=== PATIENT | female | born 1985 | race Caucasian/White ===

== ENCOUNTER 2019-03-23 05:03 | Inpatient (IN) ==
[2019-03-23 05:51] LABS: Pregnancy Test, Urine Negative (Negative)
[2019-03-23 05:59] LABS: Basophils # (auto) 0.09 K/uL (0-0.2); Basophils % (auto) 1.4 %; Eosinophils # (auto) 0.34 K/uL (0-0.5); Eosinophils % (auto) 5.3 %; Hemoglobin 14.1 g/dL (12.0-16.0); Immature Granulocytes # (auto) 0.01 K/uL (0.00-0.02); Immature Granulocytes % (auto) 0.2 %; Lymphocytes # (auto) 2.93 K/uL (1.2-3.4); Lymphocytes % (auto) 45.5 %; Mean Corpuscular Hgb Conc 34.4 g/dL (32-36); Mean Corpuscular Volume 87.6 fL (80-100); Mean Platelet Volume 10.8 fL (7.4-10.4); Monocytes # (auto) 0.42 K/uL (0.11-0.59); Monocytes % (auto) 6.5 %; Neutrophils # (auto) 2.65 K/uL (1.4-6.5); Neutrophils % (auto) 41.1 %; Platelet Count 254 K/uL (130-400); RDW Coefficient of Variation 13.1 % (11.5-14.5); Red Blood Count 4.68 M/uL (4.2-5.4); White Blood Count 6.44 K/uL (4.8-10.8)
[2019-03-23 06:01] LABS: Appearance Urine Clear (Clear); Bilirubin Urine Negative (Negative); Blood Urine Negative (Negative); Color Urine Yellow; Glucose Urine UA Negative (Negative); Ketones Urine Negative (Negative); Leukocyte Esterase Urine Negative (Negative); Nitrite Urine Negative (Negative); Protein Urine Negative (Negative); Specific Gravity Urine 1.011 (1.000-1.030); Urobilinogen Urine Negative (Negative)
[2019-03-23 06:09] LABS: Amphetamines+Metham, Urine Neg (Neg); Barbiturates, Urine Neg (Neg); Benzodiazepine, Urine Neg (Neg); Cocaine, Urine Neg (Neg); MDMA (Ecstacy), Urine Neg (Neg); Methadone, Urine Neg (Neg); Opiate, Urine Neg (Neg); Phencyclidine, Urine Neg (Neg)
[2019-03-23 06:15] LABS: BUN Creatinine Ratio 7.5 (10-20); Calcium 8.8 mg/dl (8.5-10.1); Creatinine Clr Calc Pharmacy 113.3 ml/min; Est GFR (African American) 132.9; Est GFR (Non-African American) 114.6; Potassium 3.8 mmol/L (3.5-5.1)
[2019-03-23 06:26] LABS: Bilirubin,Total 0.3 mg/dl (0.2-1); Globulin 3.9 gm/dl (2.5-4.0); Total Protein 7.9 gm/dl (6.4-8.2)
[2019-03-23 06:31] LABS: Acetaminophen < 2 ug/ml (10-30)
[2019-03-23 06:32] LABS: Salicylate < 1.7 mg/dl (2.8-20)
--- NOTE | 2019-03-23 06:57 | Emergency Department Note ---
Entered by Oleg Hannon acting as a scribe for ED Provider Note Name: Tri Osuna Age: 34, female Arrives Via: EMS Informant: Patient CC: Suicidal ideations HPI: The patient is a 34 year old female who presents to the emergency department with complaints of an episode of suicidal ideations occurring today. The patient states that she has a history of anxiety and depression. She notes that her dad has had cancer for a few months, and she reports that this has caused her depression to be worse. The patient states that she was drinking alco hol tonight which caused her to have increased thoughts of suicide. She notes that she did not try to hurt herself today, but she reports that she did have a plan to hang herself. The patient states that she called the suicide hotline because she knew that her suicidal ideations �would eventually subside.� She denies any abdominal pain, leg swelling, headache, and recent fall. She notes that she smokes cigarettes but does not use drugs. She reports that she has a history of emphysema and asthma. The patient states that there is no chance that she is . She notes that she has a family history of cancer and hypertension. ROS: See above HPI for pertinent positives & negatives. A total of 10 systems reviewed and were otherwise negative. Past Medical History: Depression, anxiety, emphysema, asthma Past Surgical History: None Family History: Cancer, hypertension Social History: Smokes cigarettes, drinks alcohol, does not use drugs, employed Home Medications: Please see medication list Allergies: None Physical: Vitals: BP 111/71, Pulse 71, Resp 16, Temp 97.5 F L, O2 Sat 98 Exam: GENERAL: Patient is heavily intoxicated appearing and in no acute distress, smells of alcohol, slurred speech. EYES: No scleral icterus, unremarkable pupils. ENT: Mucous membranes moist, no nasal congestion. NECK: No masses appreciated, no meningismus, trachea is midline. RESPIRATORY: No dyspnea. Clear to auscultation and equal bilaterally. No wheeze, no rhonchi. CARDIOVASCULAR: Regular rate and rhythm. No murmurs, rubs, gallops appreciated. GASTROINTESTINAL: Abdomen soft, non-tender, no peritonitis. Bowel sounds positive. No masses appreciated. BACK: No midline tenderness, no CVA tenderness EXTREMITIES: Normal motion all extremities, no cyanosis, no edema. Eczema to the bilateral elbows. NEUROLOGIC: Alert and oriented, no acute motor or sensory deficits, no focal weakness, cranial nerves grossly intact. SKIN: No rash, no jaundice, no diaphoresis. PSYCH: Admits depression, admits anxiety, admits suicidal ideation with plan. ED Course: Prior Medical Record, Triage/Nursing Notes, Medications, Allergies reviewed by Me 0512: The patient was evaluated in room A7. A complete history and physical exam was performed. 0622: I reevaluated the patient. She is sleeping. 0730: The patient was signed out to Dr. Tyler at the change of shift. Vital Signs: reviewed and remarkable for wnl Labs: Reviewed and remarkable for +etoh Interventions: None Blood pressure: Normal. No Referral necessary Disposition: Signed out to Dr Tyler Differentials: Differential diagnosis includes: psychiatric disorder, infection, hypoglycemia, electrolyte abnormalities, cardiac sources, intracerebral event, toxicological process, neurologic disorder, as well as others were entertained. Medical Decision Makin yr old female arrives for acute suicidal ideation in setting of alcohol intoxication. She is medically clear other than intoxicated. Denies any attempt at harm and there is no evidence by exam nor labs of suicide attempt. She was signed out to Dr Tyler pending sobering and mental health evaluation. Impression: Alcohol intoxication, suicidal ideation Doug Johnson MD The scribe's documentation has been prepared under my direction and personally reviewed by me in its entirety. I confirm that the note above accurately reflects all work, treatment, procedures, and medical decision making performed by me. Impression & Plan Alcohol intoxication, Suicidal ideation Past Med/Surg History Medical History Anxiety Asthma Depression Emphysema/COPD Family History Other Cancer Hypertension Social History Communication Ability: Effective current occupational status: employed Feels Safe at Home: Yes Smoking Status: Current every day smoker Hx Alcohol Use: Yes Hx Substance Use: No Results & Data Vital Signs Vital Signs - 24 hr 03/23/19 05:13 03/23/19 06:30 Temperature 36.4 C L Temperature Source Oral Sepsis Recent Fever Within 48 Hours No Sepsis New/Unexplained Change in Mental Status No Sepsis Action Taken by Nursing No Action Required Pulse Rate 71 Pulse Rate [Right Finger] 70 Respiratory Rate 16 16 Respiratory Effort / Characteristics Non-Labored Non-Labored Respiratory Depth Normal Normal Respiratory Pattern Regular Regular Blood Pressure 111/71 Blood Pressure [Right Arm] 96/42 L Blood Pressure Mean 84 Blood Pressure Mean [Right Arm] 60 Blood Pressure Position Lying Blood Pressure Position [Right Arm] Lying Pulse Oximetry 98 98 Oxygen Delivery Method Room Air Room Air Home Medications Current Medication List: was personally reviewed by me Laboratory Data Attestation: I reviewed the patient's lab results. Result diagrams: 03/23/19 05:41 03/23/19 05:41 Lab Results 03/23/19 03/23/19 03/23/19 Range/Units 05:11 05:11 05:11 WBC (4.8-10.8) K/uL RBC (4.2-5.4) M/uL Hgb (12.0-16.0) g/dL Hct (37-47) % MCV (80-100) fL MCH (25-34) pg MCHC (32-36) g/dL RDW Std Deviation (36.4-46.3) fL RDW Coeff of Adis (11.5-14.5) % Plt Count (130-400) K/uL MPV (7.4-10.4) fL Immature Gran % (Auto) % Neut % (Auto) % Lymph % (Auto) % [place] % (Auto) % Eos % (Auto) % Baso % (Auto) % Immature Gran # (Auto) (0.00-0.02) K/uL Neut # (Auto) (1.4-6.5) K/uL Lymph # (Auto) (1.2-3.4) K/uL [place] # (Auto) (0.11-0.59) K/uL Eos # (Auto) (0-0.5) K/uL Baso # (Auto) (0-0.2) K/uL Sodium (136-145) mmol/L Potassium (3.5-5.1) mmol/L Chloride (98-107) mmol/L Carbon Dioxide (21-32) mmol/L Anion Gap (3-11) BUN (7-18) mg/dl Creatinine (0.6-1.2) mg/dl Est Cr Clr Drug Dosing ml/min Est GFR ( Amer) Est GFR (Non-Af Amer) BUN/Creatinine Ratio (10-20) Glucose (70-99) mg/dl Calcium (8.5-10.1) mg/dl Total Bilirubin (0.2-1) mg/dl AST (15-37) U/L ALT (12-78) U/L Alkaline Phosphatase (45-117) U/L Total Protein (6.4-8.2) gm/dl Albumin (3.4-5.0) gm/dl Globulin (2.5-4.0) gm/dl Albumin/Globulin Ratio (0.9-2) TSH (0.300-4.500) uIu/ml Urine Color Yellow Urine Appearance Clear (Clear) Urine pH 5.0 (4.5-7.5) Ur Specific [place] 1.011 (1.000-1.030) Urine Protein Negative (Negative) Urine Glucose (UA) Negative (Negative) Urine Ketones Negative (Negative) Urine Blood Negative (Negative) Urine Nitrite Negative (Negative) Urine Bilirubin Negative (Negative) Urine Urobilinogen Negative (Negative) Ur Leukocyte Esterase Negative (Negative) Urine Test Negative (Negative) Salicylates (2.8-20) mg/dl Urine Opiates Screen Neg (Neg) Ur Methadone, Qual Neg (Neg) Acetaminophen (10-30) ug/ml Urine Barbiturates Neg (Neg) Ur Phencyclidine (PCP) Neg (Neg) U Amphetamin/Meth Scrn Neg (Neg) MDMA (Ecstasy) Screen Neg (Neg) U Benzodiazepines Scrn Neg (Neg) Ur Cocaine Metabolite Neg (Neg) U Marijuana (THC) Screen Pos H (Neg) Ethyl Alcohol mg/dL (0-3) mg/dl 03/23/19 03/23/19 03/23/19 Range/Units 05:41 05:41 05:41 WBC 6.44 (4.8-10.8) K/uL RBC 4.68 (4.2-5.4) M/uL Hgb 14.1 (12.0-16.0) g/dL Hct 41.0 (37-47) % MCV 87.6 (80-100) fL MCH 30.1 (25-34) pg MCHC 34.4 (32-36) g/dL RDW Std Deviation 42.0 (36.4-46.3) fL RDW Coeff of Adis 13.1 (11.5-14.5) % Plt Count 254 (130-400) K/uL MPV 10.8 H (7.4-10.4) fL Immature Gran % (Auto) 0.2 % Neut % (Auto) 41.1 % Lymph % (Auto) 45.5 % [place] % (Auto) 6.5 % Eos % (Auto) 5.3 % Baso % (Auto) 1.4 % Immature Gran # (Auto) 0.01 (0.00-0.02) K/uL Neut # (Auto) 2.65 (1.4-6.5) K/uL Lymph # (Auto) 2.93 (1.2-3.4) K/uL [place] # (Auto) 0.42 (0.11-0.59) K/uL Eos # (Auto) 0.34 (0-0.5) K/uL Baso # (Auto) 0.09 (0-0.2) K/uL Sodium 143 (136-145) mmol/L Potassium 3.8 (3.5-5.1) mmol/L Chloride 112 H (98-107) mmol/L Carbon Dioxide 26 (21-32) mmol/L Anion Gap 5.0 (3-11) BUN 5 L (7-18) mg/dl Creatinine 0.70 (0.6-1.2) mg/dl Est Cr Clr Drug Dosing 113.3 ml/min Est GFR ( Amer) 132.9 Est GFR (Non-Af Amer) 114.6 BUN/Creatinine Ratio 7.5 L (10-20) Glucose 96 (70-99) mg/dl Calcium 8.8 (8.5-10.1) mg/dl Total Bilirubin 0.3 (0.2-1) mg/dl AST 18 (15-37) U/L ALT 29 (12-78) U/L Alkaline Phosphatase 51 (45-117) U/L Total Protein 7.9 (6.4-8.2) gm/dl Albumin 4.0 (3.4-5.0) gm/dl Globulin 3.9 (2.5-4.0) gm/dl Albumin/Globulin Ratio 1.0 (0.9-2) TSH 2.880 (0.300-4.500) uIu/ml Urine Color Urine Appearance (Clear) Urine pH (4.5-7.5) Ur Specific [place] (1.000-1.030) Urine Protein (Negative) Urine Glucose (UA) (Negative) Urine Ketones (Negative) Urine Blood (Negative) Urine Nitrite (Negative) Urine Bilirubin (Negative) Urine Urobilinogen (Negative) Ur Leukocyte Esterase (Negative) Urine Test (Negative) Salicylates < 1.7 L (2.8-20) mg/dl Urine Opiates Screen (Neg) Ur Methadone, Qual (Neg) Acetaminophen < 2 L (10-30) ug/ml Urine Barbiturates (Neg) Ur Phencyclidine (PCP) (Neg) U Amphetamin/Meth Scrn (Neg) MDMA (Ecstasy) Screen (Neg) U Benzodiazepines Scrn (Neg) Ur Cocaine Metabolite (Neg) U Marijuana (THC) Screen (Neg) Ethyl Alcohol mg/dL (0-3) mg/dl 03/23/19 Range/Units 05:41 WBC (4.8-10.8) K/uL RBC (4.2-5.4) M/uL Hgb (12.0-16.0) g/dL Hct (37-47) % MCV (80-100) fL MCH (25-34) pg MCHC (32-36) g/dL RDW Std Deviation (36.4-46.3) fL RDW Coeff of Adis (11.5-14.5) % Plt Count (130-400) K/uL MPV (7.4-10.4) fL Immature Gran % (Auto) % Neut % (Auto) % Lymph % (Auto) % [place] % (Auto) % Eos % (Auto) % Baso % (Auto) % Immature Gran # (Auto) (0.00-0.02) K/uL Neut # (Auto) (1.4-6.5) K/uL Lymph # (Auto) (1.2-3.4) K/uL [place] # (Auto) (0.11-0.59) K/uL Eos # (Auto) (0-0.5) K/uL Baso # (Auto) (0-0.2) K/uL Sodium (136-145) mmol/L Potassium (3.5-5.1) mmol/L Chloride (98-107) mmol/L Carbon Dioxide (21-32) mmol/L Anion Gap (3-11) BUN (7-18) mg/dl Creatinine (0.6-1.2) mg/dl Est Cr Clr Drug Dosing ml/min Est GFR ( Amer) Est GFR (Non-Af Amer) BUN/Creatinine Ratio (10-20) Glucose (70-99) mg/dl Calcium (8.5-10.1) mg/dl Total Bilirubin (0.2-1) mg/dl AST (15-37) U/L ALT (12-78) U/L Alkaline Phosphatase (45-117) U/L Total Protein (6.4-8.2) gm/dl Albumin (3.4-5.0) gm/dl Globulin (2.5-4.0) gm/dl Albumin/Globulin Ratio (0.9-2) TSH (0.300-4.500) uIu/ml Urine Color Urine Appearance (Clear) Urine pH (4.5-7.5) Ur Specific [place] (1.000-1.030) Urine Protein (Negative) Urine Glucose (UA) (Negative) Urine Ketones (Negative) Urine Blood (Negative) Urine Nitrite (Negative) Urine Bilirubin (Negative) Urine Urobilinogen (Negative) Ur Leukocyte Esterase (Negative) Urine Test (Negative) Salicylates (2.8-20) mg/dl Urine Opiates Screen (Neg) Ur Methadone, Qual (Neg) Acetaminophen (10-30) ug/ml Urine Barbiturates (Neg) Ur Phencyclidine (PCP) (Neg) U Amphetamin/Meth Scrn (Neg) MDMA (Ecstasy) Screen (Neg) U Benzodiazepines Scrn (Neg) Ur Cocaine Metabolite (Neg) U Marijuana (THC) Screen (Neg) Ethyl Alcohol mg/dL 218.0 H (0-3) mg/dl Discharge Plan Visit Data Chief Complaint: Mental Health Evaluation Stated Complaint: MENTAL HEALTH/ALCOHOL OVERDOSE Other Complaint: Alcohol Intoxication ED Provider: Doug Johnson Discharge Problem: Alcohol intoxication, Suicidal ideation Patient Disposition: Still a Patient Forms Stand Alone Forms: My [facility] Going My Way Prescriptions Prescriptions: No Action Nitrofurantoin Monohyd Macrocr (Macrobid) 100 MG capsule 100 mg PO BID Qty: 14 RF: 0 Phenazopyridine HCl (Pyridium) 200 MG tablet 200 mg PO TID Qty: 10 RF: 0 Lorazepam (Ativan *) 0.5 MG tablet 0.5 mg PO PRN Qty: 0 RF: 0 NASONEX Qty: 0 RF: 0 PROZAC Qty: 0 RF: 0 ZYRTEC Qty: 0 RF: 0 Hydrocodone/Acetaminophen 5MG/500MG (Vicodin 5MG/500MG) tablet 1 - 2 tabs PO Q4-6HR PRN Qty: 20 RF: 0 Penicillin V Potassium (Veetids) 500 MG tablet 500 mg PO TID Qty: 21 RF: 0 Referrals Referrals: PCP,NO [Primary Care Provider] - Discharge Problem: Alcohol intoxication Qualifiers: Complication of substance-induced condition: uncomplicated Qualified Code(s): F10.920 - Alcohol use, unspecified with intoxication, uncomplicated The scribe's documentation has been prepared under my direction and personally reviewed by me in its entirety. I confirm that the note above accurately reflects all work, treatment, procedures, and medical decision making performed by me.
--- NOTE | 2019-03-23 07:25 | Emergency Department Note ---
ED Visit Note This patient was signed out to me by Dr. Johnson. She was placed in room A7. She has increasing depression and was drinking last night. She was going to harm herself. She was continuing to sober up and was medically cleared and was seen by her psychiatric supportive employment case manager. She did get Ativan for anxiety. She tells me she has felt very anxious and has had suicidal ideations lately. I do think she would benefit from inpatient treatment. She is willing to come in voluntarily and was admitted to 3 S. . : Alcohol intoxication Qualifiers: Complication of substance-induced condition: uncomplicated Qualified Code(s): F10.920 - Alcohol use, unspecified with intoxication, uncomplicated
[2019-03-23] MEDS ORDERED: LORazepam 0.5 MG TAB PO STA (11:16)
[2019-03-23] MEDS ORDERED: ACETAMINOPHEN 325 MG TAB ONE (13:17)
[2019-03-23] MEDS ORDERED: ONDANSETRON 4 MG TAB PO PRN (15:07)
[2019-03-23] MEDS ORDERED: LORazepam 0.5 MG TAB PO PRN (15:50)
[2019-03-23] MEDS ORDERED: SODIUM CHLORIDE 0.65% NA SOLN 45 ML (OCEAN) PRN (15:51)
[2019-03-23] MEDS ORDERED: MAGNESIUM HYDROXIDE SUSP 30 ML UDC PO PRN (15:51)
[2019-03-23] MEDS ORDERED: BISMUTH SUBSALICYLATE PER ML OMNICELL CHARGE PO PRN (15:51)
[2019-03-23] MEDS ORDERED: ALUMINUM/MAGNESIUM SUSP 30 ML UDC PO PRN (15:51)
[2019-03-23] MEDS ORDERED: ACETAMINOPHEN 325 MG TAB PO PRN (15:51)
--- NOTE | 2019-03-23 16:34 | History & Physical ---
Date of Service March 23, 2019 Impression / Recommendations Impression 34 yr old with extensive h/o Major depressive disorder concerns likely was in partial remission while in [place] on citalopram and lorazepam daily, with father's lymphoma dx likely aggravating presentation with her move out here and losing her structure and abrupt change of schedule and being in between job (just starting work locally) further aggravating presentation. Additionally pt taken only about 3 doses of citalopram in past month th this being a likely main aggravating factor as well. Pt also stopped her lorazepam 0.5mg 1 bid doses abruptly about a month ago. She has tendency to drink excessively about once a month, with Ativan being on board likely worsening this concern. Pt has SI frequently when things not going well but usually at passive level. H/o SIB as a adolescent with suicidal attempt at age 17 lead to psych admission. She was brought to ER by ambulance after she called crisis hotline about her SI. She is a 201 voluntarily admission for her depression and SI concerns. She is not wanting to try additional or replacement Meds nor adjust citalopram dosing but wants to resume her citalopram Pt wants to quit smoking but denied meds or nicotine replacement options at this time. Q15 minute safety checks for SI resume citalopram 0mg a day Vistaril prn for anxiety and insomnia Zofran prn for nausea/vomiting added encourage family meeting with father- pt considering encouraged referral for therapy aptps as aftercare, pt open to this encouraged psychiatrist for aftercare for psych med management, pt open to this encouraged local PCP since establishing job locally and likely to be residing locally for ablest some time, pt open to this reviewed idea of nicotine replacement therapy for cravings and to als help with goal of quitting, pt declined, pt not interested in other med options for quitting smoking as well reviewed her cannabis usage - pt views it positively without any motivation to pull of cannabis at this time monitor for potential h/o hypomanic episodes/symptoms reviewed with pt potential med adjustments including adjunctive Meds or alternative Meds or potential to adjust citalopram dose, however since worsening tied to very limited taking of her antidepressant agre with resuming it at prior rx dose for now lorazepam aiming to stop, will allow prn dosing at 0.5mg for now Inventory Assets Strengths: seeking help, starting a job locally, Needs: outpatient providers, resuming medication, outpatient therapy, addressing her use of alcohol. Risk Factors Assessment Male: No : Yes Do You Have Access To A Gun?: No Health Problems: No Mental Health Diagnoses: Yes Previous Attempt: Yes Previous Attempt; Highly Lethal: No Previous Attempt; Planned: No Previous Psychiatric Hospitalization: Yes Smoker: Yes Protective Factors Assessment Employed: No (Recently gave up her job to move to [place]) Psychiatric History Identifying Data LUCIA ROUSE is a 34-year-old F who currently lives with her father in [place], [place], has a history of depressive disorder , and was admitted on 03/23/19 13:19 on a 201 voluntary commitment for depression with suicidlity concerns. Chief Complaint "I have suicidal ideation". History of Present Illness Lucia is a 34 yr old female who has started residing in [place], [place] with her father as of a month ago due to her father's Non Hodgkin's T cell cancer dx (dx'd about 5-6 months ago). 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 Her father is making progress in his Non Hodgkin's Lymphoma although the cancer and its treatment does impact him significantly. She has lost her structure and her sense of her own life during the past month and she has pulled off her medications. She was taking citalopram 40mg 1 tab each morning till about a month ago and has only taken it 3 or so times in the past month , last time about 2 days ago and time prior about a week or so before that. She was taking ativan 0.5mg 1 po bid daily, with usage for many years, and ceased taking that since moving out her a month ago. She obtained one ativan dose in the ER though. She endorsed a tendency to more passive SI perhaps weekly when things go wrong, even in small ways. She felt citalopram was the best med that she has taken to date and she has been on it 5 years with it being raised to 40mg a day from 20mg a day somewhere in the past year or so. She had some time of taking bupropion with citalopram but a consultation with a psychiatrist lead for her bupropion to be stopped. She did not follow up with the psychiatrist due to financial concerns per pt. She saw a therapist for a limited number of appts back about 2 years ago. She has been using cannabis daily during the pat year and she attributes her usage of it as helping her grow as a person with being more responsible, grounded, and introspective. She smokes 3/4-1ppd and has once quit smoking for about 6 months, on own without nicotine replacement or medications to assist. She has a tendency to drink alcohol heavily about once a month, with tending to have black out from her drinking ,She feels cannot stop drinking once she starts and views that as her main concern about her alcohol usage. More remotely, years ago woudl drink heavily more frequently. She denied any other usage of other substances or misuse of rx'd or OTC Meds. She has one past suicide attempt at age 17 in which she took a small overdose of pills and when she took her doctor afterwards she ended up admitted at the [facility]. She has a remote h/o SIB by superficially cutting without suicidal intent at times from age [age] , denied SIB since then. She denied h/o OCD, psychotic features, or eating disorder. She endorsed some anxiety features and can at times have a panic attack. 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 She has started working at a [employer] and is expecting to start health insurance within the week. She denied episodes of hypomania but endorsed spurts of erratic behaviors that could last few hours with pt struggling to clarify if hypomanic verus just mood reactivity versus "just not being responsible" and erratic in behavior and labile in mood. Pt weary to add medication or change medication and prefers to resume citalopram at 40mg a day. She appeared not focused on Ativan. She endorsed that she sometimes views interpersonal concerns with a mild paranoid thought process, weary of people angry at her or judging her or being against her. Pt quite nauseated and severe headache during assessment left assessment to throw up and continued assessment shortly after that Past Psychiatric History Previous Psych History: as per HPI this is [facility], first at age 17 [facility] for her only other suicidal behavior past outpt treatment as above past med trials included zoloft, effexor xr, and perhaps prozac, and wellbutrin. remote past SIB as above Current Psychiatric Diagnosis: major depressive disorder Outpatient Services: PCP - [place] Previous Psych Admissions: [facility] age 17 for suicidal beahvior Do You Have Access To A Gun?: No History of Previous Suicide Attempt: Yes Describe Attempts in the Past: OD age 17 Past Head Trauma/Neuro History History of Concussion/Seizure: Yes no sz history one mild concussion symptoms resolved within couple days in her mid twenties Allergies Allergy/AdvReac Type Severity Reaction Status Date / Time peanut Allergy Anaphylaxis Verified 03/23/19 13:26 phenazopyridine Allergy Rash Verified 03/23/19 13:26 [From Pyridium] PEANUT OIL Allergy Unknown Unknown Uncoded 03/23/19 13:26 Home Medications Home Medications Medication Instructions Recorded Confirmed Type citalopram 40 mg PO DAILY 03/23/19 03/23/19 History isotretinoin 20 mg PO DAILY 03/23/19 03/23/19 History lorazepam 0.5 mg PO Q4H PRN 03/23/19 03/23/19 History Family History Family History of: Depression Family Mental Health History Comment: Dad Alcohol History Hx of Alcohol Use Over the Past 12 Months: Yes (once a month) AUDIT Total Score: 9 Smoking Use Have You Smoked or Used Tobacco Products in the Last 30 Days: Yes tobacco type: cigarettes Smoking Status: Current every day smoker Smoking packs per day: 1 Substance History Hx of Prescription Med Misuse Over the Past 12 Months: No Hx of Over the Counter Med Misuse Over the Past 12 Months: No Hx of Inhalent Misuse Over the Past 12 Months: No Hx of Organic Substance Use Over the Past 12 Months: No (marijuana for anxiety a couple of times a week) Hx of Illegal Substances/Street Drug Use Over Past 12 Months: No Problems as a Result of Past Substance Use: None Identified Personal History Living Arrangements: Home (with father ) 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) Beliefs That Will Affect Care: None Current Legal Problems: No Hx Legal Problems: No Hx Traumatic Life Events: Yes Psychological Trauma History Comment: father's health concerns, he had a stroke when pt was 20 years old, had B cell type Non Hodgkin's lymphoma about 5 years ago and about 6 months ago dx with T cell Non Hodgkin's Lymphoma Patient History Medical History Anxiety Asthma Depression Emphysema/COPD Family History Other Cancer Hypertension Social History Communication Ability: Effective Instrument Checker Required: No Beliefs That Will Affect Care: None current occupational status: employed Feels Safe at Home: Yes Smoking Status: Current every day smoker Tobacco Type: cigarettes Hx Alcohol Use: Yes Hx Substance Use: No Review of Systems Constitutional: + fatigue; no anorexia, no increased appetite and no insomnia Ear, Nose, Mouth, Throat: denied Respiratory: COPD concerns brought out by h/o asthma and smoking Cardiovascular: no chest pain, no palpitations and no edema Gastrointestinal: + nausea and + vomiting Musculoskeletal: no back pain and no joint pain Integumentary: + acne; no rash Neurologic: + headache(s) Psychiatric: as per Subjective / HPI Physical Exam Mental Examination: ER attending note reviewed and physial exam done in ER considered sufficient for this admission Psychiatric: Orientation: alert and oriented x 3 scrubs Eye Contact: + poor eye contact covering face,and looking away "have a headache Motor Behavior: steady gait and station and no abnormal motor movements Speech: normal rate/rhythm/volume of speech Affect: + depressed affect Mood: + depressed mood Thought Process: goal directed thought process, linear/logical thought process and clear/coherent thought process Thought Content: reality based without delusions Suicidal Thoughts: + reports suicidal thoughts and + reports suicidal plan plan to hang self with a sheet, mixed level of intent, realizing not what would truly want but intent was increasing to a concerning level per patient Homicidal Thoughts: denies homicidal thoughts Hallucinations: no auditory hallucinations and no visual hallucinations Cognition: recent memory grossly intact and remote memory grossly intact Estimated Intelligence: average estimated intelligence Insight: + fair insight Judgement: + impaired judgement Vital Signs (Past 24 Hours): Last Vital Signs Temp 36.6 C 03/23/19 15:18 Pulse 84 03/23/19 15:18 Resp 16 03/23/19 15:18 BP 114/72 03/23/19 15:18 Pulse Ox 95 03/23/19 11:09 Results & Data Laboratory Results Laboratory Results - last 24 hr 03/23/19 03/23/19 03/23/19 05:11 05:11 05:11 WBC RBC Hgb Hct MCV MCH MCHC RDW Std Deviation RDW Coeff of Adis Plt Count MPV Immature Gran % (Auto) Neut % (Auto) Lymph % (Auto) [place] % (Auto) Eos % (Auto) Baso % (Auto) Immature Gran # (Auto) Neut # (Auto) Lymph # (Auto) [place] # (Auto) Eos # (Auto) Baso # (Auto) Sodium Potassium Chloride Carbon Dioxide Anion Gap BUN Creatinine Est Cr Clr Drug Dosing Est GFR ( Amer) Est GFR (Non-Af Amer) BUN/Creatinine Ratio Glucose Calcium Total Bilirubin AST ALT Alkaline Phosphatase Total Protein Albumin Globulin Albumin/Globulin Ratio TSH Urine Color Yellow Urine Appearance Clear Urine pH 5.0 Ur Specific [place] 1.011 Urine Protein Negative Urine Glucose (UA) Negative Urine Ketones Negative Urine Blood Negative Urine Nitrite Negative Urine Bilirubin Negative Urine Urobilinogen Negative Ur Leukocyte Esterase Negative Urine Test Negative Salicylates Urine Opiates Screen Neg Ur Methadone, Qual Neg Acetaminophen Urine Barbiturates Neg Ur Phencyclidine (PCP) Neg U Amphetamin/Meth Scrn Neg MDMA (Ecstasy) Screen Neg U Benzodiazepines Scrn Neg Ur Cocaine Metabolite Neg U Marijuana (THC) Screen Pos H U Marijuana THC Carboxy Ethyl Alcohol mg/dL 03/23/19 03/23/19 03/23/19 05:11 05:41 05:41 WBC 6.44 RBC 4.68 Hgb 14.1 Hct 41.0 MCV 87.6 MCH 30.1 MCHC 34.4 RDW Std Deviation 42.0 RDW Coeff of Adis 13.1 Plt Count 254 MPV 10.8 H Immature Gran % (Auto) 0.2 Neut % (Auto) 41.1 Lymph % (Auto) 45.5 [place] % (Auto) 6.5 Eos % (Auto) 5.3 Baso % (Auto) 1.4 Immature Gran # (Auto) 0.01 Neut # (Auto) 2.65 Lymph # (Auto) 2.93 [place] # (Auto) 0.42 Eos # (Auto) 0.34 Baso # (Auto) 0.09 Sodium 143 Potassium 3.8 Chloride 112 H Carbon Dioxide 26 Anion Gap 5.0 BUN 5 L Creatinine 0.70 Est Cr Clr Drug Dosing 113.3 Est GFR ( Amer) 132.9 Est GFR (Non-Af Amer) 114.6 BUN/Creatinine Ratio 7.5 L Glucose 96 Calcium 8.8 Total Bilirubin 0.3 AST 18 ALT 29 Alkaline Phosphatase 51 Total Protein 7.9 Albumin 4.0 Globulin 3.9 Albumin/Globulin Ratio 1.0 TSH 2.880 Urine Color Urine Appearance Urine pH Ur Specific [place] Urine Protein Urine Glucose (UA) Urine Ketones Urine Blood Urine Nitrite Urine Bilirubin Urine Urobilinogen Ur Leukocyte Esterase Urine Test Salicylates Urine Opiates Screen Ur Methadone, Qual Acetaminophen Urine Barbiturates Ur Phencyclidine (PCP) U Amphetamin/Meth Scrn MDMA (Ecstasy) Screen U Benzodiazepines Scrn Ur Cocaine Metabolite U Marijuana (THC) Screen U Marijuana THC Carboxy Pending Ethyl Alcohol mg/dL 03/23/19 03/23/19 05:41 05:41 WBC RBC Hgb Hct MCV MCH MCHC RDW Std Deviation RDW Coeff of Adis Plt Count MPV Immature Gran % (Auto) Neut % (Auto) Lymph % (Auto) [place] % (Auto) Eos % (Auto) Baso % (Auto) Immature Gran # (Auto) Neut # (Auto) Lymph # (Auto) [place] # (Auto) Eos # (Auto) Baso # (Auto) Sodium Potassium Chloride Carbon Dioxide Anion Gap BUN Creatinine Est Cr Clr Drug Dosing Est GFR ( Amer) Est GFR (Non-Af Amer) BUN/Creatinine Ratio Glucose Calcium Total Bilirubin AST ALT Alkaline Phosphatase Total Protein Albumin Globulin Albumin/Globulin Ratio TSH Urine Color Urine Appearance Urine pH Ur Specific [place] Urine Protein Urine Glucose (UA) Urine Ketones Urine Blood Urine Nitrite Urine Bilirubin Urine Urobilinogen Ur Leukocyte Esterase Urine Test Salicylates < 1.7 L Urine Opiates Screen Ur Methadone, Qual Acetaminophen < 2 L Urine Barbiturates Ur Phencyclidine (PCP) U Amphetamin/Meth Scrn MDMA (Ecstasy) Screen U Benzodiazepines Scrn Ur Cocaine Metabolite U Marijuana (THC) Screen U Marijuana THC Carboxy Ethyl Alcohol mg/dL 218.0 H Current Inpatient Medications Current Inpatient Medications: Current Inpatient Medications Citalopram Hydrobromide (Celexa) 40 mg PO DAILY AURE Stop: 04/22/19 15:59 Lorazepam (Ativan) 0.5 mg PO Q4H PRN PRN Reason: Anxiety Stop: 04/22/19 15:49 Ondansetron HCl (Zofran Tab) 4 mg PO Q4H PRN PRN Reason: Nausea Stop: 04/22/19 15:06 CPT Code CPT Code Initial Hospital Care: 49955
[2019-03-23] MEDS: CITALOPRAM 40 MG TAB PO SCH (17:57)
[2019-03-24] MEDS: CITALOPRAM 40 MG TAB PO SCH (09:25)
[2019-03-24] MEDS ORDERED: KETOCONAZOLE 2% SHAMPOO 120 ML BTL EXT PRN (15:55)
--- NOTE | 2019-03-24 18:24 | Psychiatric Progress Note ---
Date of Service March 24, 2019 Impression / Recommendations Impression 34 yr old with extensive h/o Major depressive disorder concerns likely was in partial remission while in [place] on citalopram and lorazepam daily, with father's lymphoma dx likely aggravating presentation with her move out here and losing her structure and abrupt change of schedule and being in between job (just starting work locally) further aggravating presentation. Additionally pt taken only about 3 doses of citalopram in past month th this being a likely main aggravating factor as well. Pt also stopped her lorazepam 0.5mg 1 bid doses abruptly about a month ago. She has tendency to drink excessively about once a month, with Ativan being on board likely worsening this concern. Pt has SI frequently when things not going well but usually at passive level. H/o SIB as a adolescent with suicidal attempt at age 17 lead to psych admission. She was brought to ER by ambulance after she called crisis hotline about her SI. She is a 201 voluntarily admission for her depression and SI concerns. She is not wanting to try additional or replacement Meds nor adjust citalopram dosing but wants to resume her citalopram Pt wants to quit smoking but denied meds or nicotine replacement options at this time. 03/23 Q15 minute safety checks for SI resume citalopram 0mg a day Vistaril prn for anxiety and insomnia Zofran prn for nausea/vomiting added encourage family meeting with father- pt considering encouraged referral for therapy aptps as aftercare, pt open to this encouraged psychiatrist for aftercare for psych med management, pt open to this encouraged local PCP since establishing job locally and likely to be residing locally for ablest some time, pt open to this reviewed idea of nicotine replacement therapy for cravings and to als help with goal of quitting, pt declined, pt not interested in other med options for quitting smoking as well reviewed her cannabis usage - pt views it positively without any motivation to pull of cannabis at this time monitor for potential h/o hypomanic episodes/symptoms reviewed with pt potential med adjustments including adjunctive Meds or alternative Meds or potential to adjust citalopram dose, however since worsening tied to very limited taking of her antidepressant agre with resuming it at prior rx dose for now lorazepam aiming to stop, will allow prn dosing at 0.5mg for now 03/24 - maintained meds unchanged, pt willing to learn more about bipolar d/o and hypomanic epsidoes to see if might be relevant for her addressed her alcohol and cannabis usage and pt in contempltaitve stage but seems willing to prepare to make some changes to her drinking but not yet to her cannabis usage. encouraged vistaril usage for anxiety/insomnia, pt wondering about ativan usage s/p discharge for prn for panic attacks, pt weary of starting buspar or other med options at this time encouraging family meeting - pt open to one with coworker who has friendship with Inventory Assets Strengths: seeking help, starting a job locally, Needs: outpatient providers, resuming medication, outpatient therapy, addressing her use of alcohol. Risk Factors Assessment Male: No : Yes Do You Have Access To A Gun?: No Health Problems: No Mental Health Diagnoses: Yes Previous Attempt: Yes Previous Attempt; Highly Lethal: No Previous Attempt; Planned: No Previous Psychiatric Hospitalization: Yes Smoker: Yes Protective Factors Assessment Employed: No (Recently gave up her job to move to [place]) Interval History Chief Complaint "feeling better today". Review of Systems Sleep Information Total Hours of Sleep: 5.5 Sleep Comments: awakened with new roommate then back to sleep Meal Information Percent Meal Consumed - Breakfast: 100 Percent Meal Consumed - Lunch: 80 Percent Meal Consumed - Dinner: 100 Subjective Subjective Patient was seen & assessed and interval progress reviewed with nursing. pt engaging with engineering writer, staff, peers. feeling better physically today, slept decently last nigth at first [place]got a roommate and found that awakard (in middle of night). pt denied SI. pt addresing her desire to change how she drinks but not ready to abstain compeltely but thinking about not drinking out in bars. Pt weary of being a burden for others annette when others now worrying about her and father has non hodgkins lympopma. pt shared how her friend she is close to and has ptoential to possibly date got her the new job she has starte working. She is weary of having panic attacks and woudl like asses to ativan to use sparing for panic attacks. She shared how she was struggling in self care and motivaiton as mood worsend past month. She is willing to explore if her trouble living a strucutre life wihtout drama could be tied to bipolar d/o concerns but this is not clear as of yet and celexa has been a stablizing factor for her Physical Exam Psychiatric Orientation: alert and oriented x 3 Apperance: appropriately dressed and appropriately groomed Eye Contact: good eye contact and + poor eye contact Motor Behavior: steady gait and station and no abnormal motor movements Speech: normal rate/rhythm/volume of speech Affect: euthymic affect mood improved but weary of others worrying about her Thought Process: goal directed thought process, linear/logical thought process and clear/coherent thought process Thought Content: reality based without delusions Suicidal Thoughts: denies suicidal thoughts Homicidal Thoughts: denies homicidal thoughts Hallucinations: no auditory hallucinations and no visual hallucinations Cognition: recent memory grossly intact and remote memory grossly intact Estimated Intelligence: average estimated intelligence Insight: + fair insight Judgement: + fair judgement Vital Signs (Past 24 Hours) Last Vital Signs Temp 36.8 C 03/24/19 06:59 Pulse 80 03/24/19 07:01 Resp 18 03/24/19 06:59 BP 117/74 03/24/19 07:01 Pulse Ox 95 03/23/19 11:09 Results & Data Current Inpatient Medications Current Inpatient Medications: Current Inpatient Medications Acetaminophen (Tylenol) 650 mg PO Q4H PRN PRN Reason: Headache or Minor Fever Stop: 04/22/19 15:50 Last Admin: 03/23/19 21:57 Dose: 650 mg Documented by: Al Hydrox/Mg Hydrox/Simethicone (Maalox) 30 ml PO Q4H PRN PRN Reason: GI Upset Stop: 04/22/19 15:50 Bismuth Subsalicylate (Kaopectate) 15 ml PO PRN PRN PRN Reason: Loose Stool Stop: 04/22/19 15:50 Citalopram Hydrobromide (Celexa) 40 mg PO DAILY AURE Stop: 04/22/19 15:59 Last Admin: 03/24/19 09:25 Dose: 40 mg Documented by: Hydroxyzine HCl (Vistaril) 25 mg PO Q4H PRN PRN Reason: Anxiety Stop: 04/22/19 15:50 Last Admin: 03/24/19 17:17 Dose: 25 mg Documented by: Hydroxyzine HCl (Vistaril) 50 mg PO HSZ PRN PRN Reason: Insomnia Stop: 04/22/19 15:50 Ketoconazole (Nizoral 2%) 1 appln EXT DAILY PRN PRN Reason: Rash Stop: 04/03/19 15:54 Lorazepam (Ativan) 0.5 mg PO Q4H PRN PRN Reason: Anxiety Stop: 04/22/19 15:49 Magnesium Hydroxide (Milk Of Magnesia) 30 ml PO DAILY PRN PRN Reason: Heartburn Stop: 04/22/19 15:50 Ondansetron HCl (Zofran Tab) 4 mg PO Q4H PRN PRN Reason: Nausea Stop: 04/22/19 15:06 Last Admin: 03/23/19 16:04 Dose: 4 mg Documented by: Sodium Chloride ([place] Nasal) 1 - 2 sprays NA PRN PRN PRN Reason: Nasal Dryness/Congestion Stop: 04/22/19 15:50 Post Discharge Appointments Primary Care Physician Name Of Family Doctor: Dr. Shaffer ([place]) Therapist Name of Therapist: Needs ref Shipping And Receiving Specialist Name of Shipping And Receiving Specialist: None CPT Code CPT Code 79897 plus 33291 - 20 minutes supportive and CBT therapy tied to above and self care, boundaries and substance related concerns
[2019-03-25] MEDS: CITALOPRAM 40 MG TAB PO SCH (09:34)
[2019-03-25] MEDS ORDERED: hydrOXYzine HCl 10 MG TAB PO PRN (11:35)
--- NOTE | 2019-03-25 11:49 | Psychiatric Progress Note ---
Date of Service March 25, 2019 Impression / Recommendations Impression Pt does not feel she has been making progress thus far in her admission. At her request we reviewed signs and symptoms of bipolar presentation. Patient does admit to some of these symptoms several years ago, overlapping with a period of increased alcohol use. Patient does not outwardly dispute the possibility of an underlying bipolar presentation, however does not feel that this is entirely accurate at this time. Encouraged patient to continue observation, explaining to her that these conditions can take time to accurately tease out. Patient does report interest in reducing her alcohol use, but verbalizes desire to continue utilizing cannabis on a regular basis. Patient reports ongoing suicidal ideation, especially prior to falling asleep here on the unit. Patient does not feel that she would be able to keep herself entirely safe outside of the inpatient setting. Ongoing psychiatric treatment is medically necessary due to chronic suicidal ideation, previous inpatient admissions, no established aftercare or outpatient providers, and high risk of harm to self if discharged prematurely. She is planning to schedule a family meeting with a coworker for tomorrow if able. (1) Suicidal ideation: 03/23 admitted with SI and plan to hang herself 03/25 - Reports ongoing SI, passive on unit - Remains unable to contract for safety outside of the hospital setting (2) Major depressive disorder: 03/23 Q15 minute safety checks for SI resume citalopram 40mg a day Zofran prn for nausea/vomiting added encourage family meeting with father- pt considering encouraged referral for therapy aptps as aftercare, pt open to this encouraged psychiatrist for aftercare for psych med management, pt open to this encouraged local PCP since establishing job locally and likely to be residing locally for ablest some time, pt open to this monitor for potential h/o hypomanic episodes/symptoms reviewed with pt potential med adjustments including adjunctive Meds or alternative Meds or potential to adjust citalopram dose, however since worsening tied to very limited taking of her antidepressant agree with resuming it at prior rx dose for now 03/24 - maintained meds unchanged, pt willing to learn more about bipolar d/o and hypomanic episdoes to see if might be relevant for her encouraging family meeting - pt open to one with coworker who has friendship with 03/25 - continue citalopram 40mg daily - schedule family meeting with co-worker, likely for tomorrow afternoon - Continue to observe for activation, reviewed signs and symptoms of bipolar presentation - encouraging patient to observe for mood fluctuations presenting similarly (3) Anxiety: 03/23 Vistaril prn for anxiety and insomnia lorazepam aiming to stop, will allow prn dosing at 0.5mg for now 03/24 encouraged vistaril usage for anxiety/insomnia, pt wondering about ativan usage s/p discharge for prn for panic attacks, pt weary of starting buspar or other med options at this time (4) Cannabis abuse: 03/23 reviewed her cannabis usage - pt views it positively without any motivation to pull of cannabis at this time 03/24 addressed her alcohol and cannabis usage and pt in contemplative stage but seems willing to prepare to make some changes to her drinking but not yet to her cannabis usage. (5) Alcohol intoxication: 03/24 addressed her alcohol and cannabis usage and pt in contemplative stage but seems willing to prepare to make some changes to her drinking but not yet to her cannabis usage. Admitted with BAL of 218.0 (6) Nicotine addiction: 03/23 reviewed idea of nicotine replacement therapy for cravings and to als help with goal of quitting, pt declined, pt not interested in other med options for quitting smoking as well Inventory Assets Strengths: seeking help, starting a job locally, Needs: outpatient providers, resuming medication, outpatient therapy, addressing her use of alcohol. Risk Factors Assessment Male: No : Yes Do You Have Access To A Gun?: No Health Problems: No Mental Health Diagnoses: Yes Previous Attempt: Yes Previous Attempt; Highly Lethal: No Previous Attempt; Planned: No Previous Psychiatric Hospitalization: Yes Smoker: Yes Protective Factors Assessment Employed: No (Recently gave up her job to move to [place]) Interval History Identifying Information LUCIA ROUSE is a 34-year-old F who currently lives with her father in [place], [place], has a history of depressive disorder, and was admitted on 03/23/19 13:19 on a 201 voluntary commitment for depression with suicidality concerns. Chief Complaint "It has been rough, needless to say." Review of Systems Notes Constitutional: reports some dizziness Cardiovascular: denied Respiratory: denied Gastrointestinal: denied Neurological: denied Psychiatric: denies symptoms other than stated above Total of at least 10 systems reviewed, pertinent positives as above and in HPI. Sleep Information Total Hours of Sleep: 9.25 Sleep Comments: pt appeared to sleep 2.25 hrs during evening shift. pt on q-15 minute checks Meal Information Percent Meal Consumed - Breakfast: 90 Percent Meal Consumed - Lunch: 80 Percent Meal Consumed - Dinner: 100 Subjective Subjective Patient was seen & assessed and interval progress reviewed with Treatment Team. Staff reports the patient has been participating actively in group programming. She reported willingness for a family meeting, but was requested to identify a support and assist with scheduling the meeting. Patient was seen today to assess progress since admission. She reports some concern to this provider, as she feels that she is not agreeing with the question of a bipolar presentation. She is requesting to further discuss this topic. Patient was reassured that conversations over the weekend related to bipolar presentation more likely to increase her awareness of signs and symptoms, not to firmly state that she meets criteria for the diagnosis. This provider did review with the patient and brief history of her mood symptoms. Patient admits that her depression and suicidal i deation started around age 16. She feels that fluctuation in mood is closely related to onset of her menses. Patient does admit to being more reckless with money, "reckless in general", having reduced insight and a reckless sense of apathy -but states these feelings occurred several years ago. Despite the presence of the symptoms, patient states that her mood had remained rather low during this time. Patient also admits that she had been drinking rather heavily during this period of time, consuming at least a bottle of wine about 4 nights a week. Patient states she would often drink to the point of getting drunk or even blacking out during this time. Patient was provided with education about signs and symptoms of bipolar disorder, along with increase in which psychiatric symptoms can be impacted, or even masked, by substance use. In general, this provider was recommending increased awareness of the symptoms moving forward, in order to attempt to rule out a bipolar presentation. Patient verbalized satisfaction with this response, was agreeable to monitoring for activation, elevated mood, and other possible hypomanic/manic symptoms. Patient admits that she continues to experience suicidal thoughts. She states, "I like kind of dissociate during panic attacks. Sometimes it seems like I am not really there, but I know I am. That just leads to me thinking if this does not even feel like real life why would I keep doing this?" Patient does admit to inability to contract for safety here on the unit. She does admit to this provider that she does not feel like she is making much progress as of yet. We discussed recommendation to schedule a family meeting with an outpatient support, which patient is willing to do. Patient admits to some lightheadedness, starting shortly after her dose of citalopram this morning. Otherwise she denies any needs or concerns presently. Physical Exam Psychiatric Orientation: alert, oriented x 3 and cooperative (Only superficially) Apperance: appropriately dressed and appropriately groomed Eye Contact: good eye contact Motor Behavior: steady gait and station and no abnormal motor movements Speech: normal rate/rhythm/volume of speech Mildly irritable tone at times Affect: + depressed affect and + anxious affect "It has been rough" and "I do not feel like I am making much progress" Thought Process: goal directed thought process and clear/coherent thought process Thought Content: reality based without delusions Suicidal Thoughts: + reports suicidal thoughts ("If life does not even feel real, why keep doing this?") Homicidal Thoughts: denies homicidal thoughts Hallucinations: no auditory hallucinations and no visual hallucinations Cognition: remote memory grossly intact, attention grossly intact and language grossly intact Estimated Intelligence: consistent with education level Insight: + fair insight Judgement: + fair judgement Vital Signs (Past 24 Hours) Last Vital Signs Temp 36.7 C 03/25/19 06:49 Pulse 72 03/25/19 06:49 Resp 18 03/25/19 06:49 BP 111/74 03/25/19 06:49 Pulse Ox 95 03/23/19 11:09 Results & Data Current Inpatient Medications Current Inpatient Medications: Current Inpatient Medications Acetaminophen (Tylenol) 650 mg PO Q4H PRN PRN Reason: Headache or Minor Fever Stop: 04/22/19 15:50 Last Admin: 03/23/19 21:57 Dose: 650 mg Documented by: Al Hydrox/Mg Hydrox/Simethicone (Maalox) 30 ml PO Q4H PRN PRN Reason: GI Upset Stop: 04/22/19 15:50 Bismuth Subsalicylate (Kaopectate) 15 ml PO PRN PRN PRN Reason: Loose Stool Stop: 04/22/19 15:50 Citalopram Hydrobromide (Celexa) 40 mg PO DAILY AURE Stop: 04/22/19 15:59 Last Admin: 03/25/19 09:34 Dose: 40 mg Documented by: Hydroxyzine HCl (Vistaril) 50 mg PO HSZ PRN PRN Reason: Insomnia Stop: 04/22/19 15:50 Hydroxyzine HCl (Vistaril) 10 mg PO Q4H PRN PRN Reason: Anxiety Stop: 04/22/19 15:50 Ketoconazole (Nizoral 2%) 1 appln EXT DAILY PRN PRN Reason: Rash Stop: 04/03/19 15:54 Last Admin: 03/24/19 21:34 Dose: 1 appln Documented by: Lorazepam (Ativan) 0.5 mg PO Q4H PRN PRN Reason: Anxiety Stop: 04/22/19 15:49 Magnesium Hydroxide (Milk Of Magnesia) 30 ml PO DAILY PRN PRN Reason: Heartburn Stop: 04/22/19 15:50 Ondansetron HCl (Zofran Tab) 4 mg PO Q4H PRN PRN Reason: Nausea Stop: 04/22/19 15:06 Last Admin: 03/23/19 16:04 Dose: 4 mg Documented by: Sodium Chloride ([place] Nasal) 1 - 2 sprays NA PRN PRN PRN Reason: Nasal Dryness/Congestion Stop: 04/22/19 15:50 Post Discharge Appointments Primary Care Physician Name Of Family Doctor: Dr. Shaffer ([place]) Therapist Name of Therapist: Needs ref Tape Machine Tailer Name of Tape Machine Tailer: None CPT Code CPT Code 83946 (1) Alcohol intoxication Complication of substance-induced condition: uncomplicated Qualified Code(s): F10.920 - Alcohol use, unspecified with intoxication, uncomplicated
[2019-03-25] MEDS: NICOTINE 14 MG/24 HR PATCH TD SCH (18:27)
[2019-03-25] MEDS: NICOTINE POLACRILEX 2 MG GUM MT PRN ×2 (18:39→21:01)
[2019-03-26] MEDS: NICOTINE 14 MG/24 HR PATCH TD SCH (08:06)
[2019-03-26] MEDS: CITALOPRAM 40 MG TAB PO SCH (08:06)
[2019-03-26] MEDS: NICOTINE POLACRILEX 2 MG GUM MT PRN ×4 (09:54→18:25)
--- NOTE | 2019-03-26 10:35 | Psychiatric Progress Note ---
Date of Service March 26, 2019 Impression / Recommendations Impression Patient is reporting some improvement in mood today she feels that her time here has been beneficial, especially in allowing her to identify some needs as it relates to her mental health. Patient states 1 of these realizations is that she should be adjusting her antidepressant medications. Reviewed ability to adjust medications during this admission, versus allowing for these adjustments on an outpatient basis�especially as she is now several days into her admission. Patient verbalizes desire to begin these adjustments today if possible. We reviewed various medication options including ability to further titrate citalopram (with recommendation for baseline EKG and serial follow-ups), cross taper to escitalopram, or cross taper to duloxetine. Patient states that she recalls a rather significant benefit from previous trial of venlafaxine, only stopping the medication due to significant sexual side effects. She states this is causing her to lean in favor of a trial of duloxetine. Risks, benefits, and potential side effects were reviewed in detail with the patient. This provider was recommending a cross taper from citalopram to duloxetine which was discussed with the patient. Patient was agreeable to receiving a small dose of duloxetine this afternoon, with plan to receive 20 mg of citalopram and 30 mg of duloxetine tomorrow morning. Can continue this cross taper as tolerated, patient is agreeable to more rapid transition as she also feels she is approaching readiness for discharge. Reviewed with patient the duloxetine cost is $9 for a month's supply or $24 for a 3-month supply according to the generic's list at [facility]. Patient denies active suicidality today, feeling she is back to her baseline thoughts of "what is the point?" Patient is increasing inability to contract for safety outside of the hospital; however, ongoing psychiatric treatment is medically necessary due to chronic suicidal ideation, previous inpatient admissions, no established aftercare or outpatient providers, and high risk of harm to self if discharged prematurely. (1) Suicidal ideation: 03/23 admitted with SI and plan to hang herself 03/25 - Reports ongoing SI, passive on unit - Remains unable to contract for safety outside of the hospital setting 03/26 - Reporting general thoughts of "what's the point?" - Denies active SI or intent to harm self (2) Major depressive disorder: 03/23 Q15 minute safety checks for SI resume citalopram 40mg a day Zofran prn for nausea/vomiting added encourage family meeting with father- pt considering encouraged referral for therapy aptps as aftercare, pt open to this encouraged psychiatrist for aftercare for psych med management, pt open to this encouraged local PCP since establishing job locally and likely to be residing locally for ablest some time, pt open to this monitor for potential h/o hypomanic episodes/symptoms reviewed with pt potential med adjustments including adjunctive Meds or alternative Meds or potential to adjust citalopram dose, however since worsening tied to very limited taking of her antidepressant agree with resuming it at prior rx dose for now 03/24 - maintained meds unchanged, pt willing to learn more about bipolar d/o and hypomanic episdoes to see if might be relevant for her encouraging family meeting - pt open to one with coworker who has friendship with 03/25 - continue citalopram 40mg daily - schedule family meeting with co-worker, likely for tomorrow afternoon - Continue to observe for activation, reviewed signs and symptoms of bipolar presentation - encouraging patient to observe for mood fluctuations presenting similarly 03/26 - Reporting desire to adjust antidepressant medications - following review, reports preference for duloxetine - Will provide a 20mg dose this afternoon. Ordered 30mg of duloxetine and 20mg of citalopram for tomorrow morning - patient agreeable to more rapid cross- taper as likely nearing appropriate discharge timing - No observe activation related to consistent dosing with antidepressant medications - Family meeting with friend/coworker is scheduled for this afternoon (3) Anxiety: 03/23 Vistaril prn for anxiety and insomnia lorazepam aiming to stop, will allow prn dosing at 0.5mg for now 03/24 encouraged vistaril usage for anxiety/insomnia, pt wondering about ativan usage s/p discharge for prn for panic attacks, pt weary of starting buspar or other med options at this time (4) Cannabis abuse: 03/23 reviewed her cannabis usage - pt views it positively without any motivation to pull of cannabis at this time 03/24 addressed her alcohol and cannabis usage and pt in contemplative stage but seems willing to prepare to make some changes to her drinking but not yet to her cannabis usage. (5) Alcohol intoxication: 03/24 addressed her alcohol and cannabis usage and pt in contemplative stage but seems willing to prepare to make some changes to her drinking but not yet to her cannabis usage. Admitted with BAL of 218.0 (6) Nicotine addiction: 03/23 reviewed idea of nicotine replacement therapy for cravings and to als help with goal of quitting, pt declined, pt not interested in other med options for quitting smoking as well Inventory Assets Strengths: seeking help, starting a job locally, Needs: outpatient providers, resuming medication, outpatient therapy, addressing her use of alcohol. Risk Factors Assessment Male: No : Yes Do You Have Access To A Gun?: No Health Problems: No Mental Health Diagnoses: Yes Previous Attempt: Yes Previous Attempt; Highly Lethal: No Previous Attempt; Planned: No Previous Psychiatric Hospitalization: Yes Smoker: Yes Protective Factors Assessment Employed: No (Recently gave up her job to move to [place]) Interval History Identifying Information LUCIA ROUSE is a 34-year-old F who currently lives with her father in [place], [place], has a history of depressive disorder, and was admitted on 03/23/19 13:19 on a 201 voluntary commitment for depression with suicidality concerns. Chief Complaint "Wonderful. Okay, that is a bit of an exaggeration. But this is definitely the best day that I have had here" Review of Systems Notes Constitutional: Reports feeling that complaints of dizziness may be related to episodes of anxiety Cardiovascular: denied Respiratory: denied Gastrointestinal: denied Neurological: denied Psychiatric: denies symptoms other than stated above Total of at least 10 systems reviewed, pertinent positives as above and in HPI. Sleep Information Total Hours of Sleep: 8.25 Sleep Comments: pt appeared to sleep 1.75 hrs during evening shift. pt on q-15 minute checks Meal Information Percent Meal Consumed - Breakfast: 100 Percent Meal Consumed - Lunch: 90 Percent Meal Consumed - Dinner: 25 Subjective Subjective Patient was seen & assessed and interval progress reviewed with Nursing. Staff reports the patient continues to engage with peers in group and recreational programming. No observed symptoms of activation with more consistent antidepressant dosing. Patient is scheduled for a family meeting with her friend/coworker this afternoon. Patient was seen today to assess progress since admission. She initially tells this provider that she is "wonderful." When ask ed how genuine this comment was, patient admits that it is somewhat exaggerated, but does state that she feels this is the best states she has had thus far in her admission. She feels that her mood was lifted following a visit from her friend last evening, the same coworker who will be coming in for a family meeting this afternoon. Patient feels that she is increasing in her ability to communicate her needs and feelings as they relate to her mental health. She also feels that she is more understood by this friend, which is comforting for her. Patient does admit to increased anxiety in situations in which she is pressured to talk about her feelings, but recognizes the importance of this. Reviewed reports yesterday of dizziness following medication administration. Patient believes that this dizziness may now be better explained by episodes of anxiety, as she feels it better relates to these periods. Patient denies active suicidality, but admits to ongoing feeling of "what is the point?" Patient states this thought is not unusual for her at baseline, and denies plan or intent at this time to harm herself or end her life. Patient does share with this provider desire to adjust her medications, stating this is a realization she has made during this admission. Patient states she has been on citalopram for about 3 years, and feels that she has come to terms with the fact that it is not as effective as it previously had been. She is interested in starting something new today if possible, and remains agreeable to following up with an outpatient psychiatric prescriber on discharge. Patient denies any other specific needs or concerns today. Physical Exam Psychiatric Orientation: alert, oriented x 3 and cooperative (And pleasant) Apperance: appropriately dressed and appropriately groomed Eye Contact: good eye contact Motor Behavior: steady gait and station and no abnormal motor movements Speech: normal rate/rhythm/volume of speech Affect: euthymic affect (Appearing bright and more cheerful today) Mood: + depressed mood (But less so) and + anxious mood "Wonderful, a bit of an exaggeration" and "I am feeling a little better" Thought Process: goal directed thought process and clear/coherent thought process Thought Content: reality based without delusions Suicidal Thoughts: denies suicidal thoughts and denies suicidal plan Homicidal Thoughts: denies homicidal thoughts Hallucinations: no auditory hallucinations and no visual hallucinations Cognition: remote memory grossly intact Estimated Intelligence: consistent with education level Insight: + fair insight Judgement: + fair judgement Vital Signs (Past 24 Hours) Last Vital Signs Temp 36.5 C 03/26/19 06:57 Pulse 73 03/26/19 06:57 Resp 16 03/26/19 06:57 BP 112/76 03/26/19 06:57 Pulse Ox 95 03/23/19 11:09 Results & Data Laboratory Results Laboratory Results - last 24 hr 03/23/19 05:11 U Marijuana THC Carboxy 50 A Current Inpatient Medications Current Inpatient Medications: Current Inpatient Medications Acetaminophen (Tylenol) 650 mg PO Q4H PRN PRN Reason: Headache or Minor Fever Stop: 04/22/19 15:50 Last Admin: 03/23/19 21:57 Dose: 650 mg Documented by: Al Hydrox/Mg Hydrox/Simethicone (Maalox) 30 ml PO Q4H PRN PRN Reason: GI Upset Stop: 04/22/19 15:50 Bismuth Subsalicylate (Kaopectate) 15 ml PO PRN PRN PRN Reason: Loose Stool Stop: 04/22/19 15:50 Citalopram Hydrobromide (Celexa) 40 mg PO DAILY AURE Stop: 04/22/19 15:59 Last Admin: 03/26/19 08:06 Dose: 40 mg Documented by: Hydroxyzine HCl (Vistaril) 50 mg PO HSZ PRN PRN Reason: Insomnia Stop: 04/22/19 15:50 Hydroxyzine HCl (Vistaril) 10 mg PO Q4H PRN PRN Reason: Anxiety Stop: 04/22/19 15:50 Ketoconazole (Nizoral 2%) 1 appln EXT DAILY PRN PRN Reason: Rash Stop: 04/03/19 15:54 Last Admin: 03/24/19 21:34 Dose: 1 appln Documented by: Lorazepam (Ativan) 0.5 mg PO Q4H PRN PRN Reason: Anxiety Stop: 04/22/19 15:49 Magnesium Hydroxide (Milk Of Magnesia) 30 ml PO DAILY PRN PRN Reason: Heartburn Stop: 04/22/19 15:50 Miscellaneous (Remove Nicoderm Patch) 1 ea N/A HS AURE Stop: 04/24/19 23:58 Last Admin: 03/25/19 18:38 Dose: 1 ea Documented by: Nicotine (Nicoderm Cq) 14 mg TD QAM AURE Stop: 04/24/19 17:59 Last Admin: 03/26/19 08:06 Dose: Not Given Documented by: Nicotine Polacrilex ([place] 2mg) 1 piece MT Q2H PRN PRN Reason: Nicotine craving Stop: 04/24/19 17:55 Last Admin: 03/26/19 09:54 Dose: 1 piece Documented by: Ondansetron HCl (Zofran Tab) 4 mg PO Q4H PRN PRN Reason: Nausea Stop: 04/22/19 15:06 Last Admin: 03/23/19 16:04 Dose: 4 mg Documented by: Sodium Chloride ([place] Nasal) 1 - 2 sprays NA PRN PRN PRN Reason: Nasal Dryness/Congestion Stop: 04/22/19 15:50 Post Discharge Appointments Primary Care Physician Name Of Family Doctor: Dr. Shaffer ([place]) Therapist Name of Therapist: Needs ref Learning Operations Specialist Name of Learning Operations Specialist: None CPT Code CPT Code 12626 (1) Alcohol intoxication Complication of substance-induced condition: uncomplicated Qualified Code(s): F10.920 - Alcohol use, unspecified with intoxication, uncomplicated
[2019-03-26] MEDS ORDERED: DULOXETINE HCL 20 MG CAP PO ONE (14:00)
[2019-03-27] MEDS: NICOTINE 14 MG/24 HR PATCH TD SCH (08:35)
[2019-03-27] MEDS: NICOTINE POLACRILEX 2 MG GUM MT PRN (08:43)
[2019-03-27] MEDS ORDERED: CITALOPRAM 20 MG TAB PO ONE (09:00)
[2019-03-27] MEDS ORDERED: DULOXETINE HCL 30 MG CAP PO SCH (09:00)
--- NOTE | 2019-03-27 09:11 | Discharge Summary ---
Date of Service March 27, 2019 History of Present Illness Tri is a 34 yr old female who has started residing in [place], [place] with her father as of a month ago due to her father's Non Hodgkin's T cell cancer dx (dx'd about 5-6 months ago). 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 Her father is making progress in his Non Hodgkin's Lymphoma although the cancer and its treatment does impact him significantly. She has lost her structure and her sense of her own life during the past month and she has pulled off her medications. She was taking citalopram 40mg 1 tab each morning till about a month ago and has only taken it 3 or so times in the past month , last time about 2 days ago and time prior about a week or so before that. She was taking ativan 0.5mg 1 po bid daily, with usage for many years, and ceased taking that since moving out her a month ago. She obtained one ativan dose in the ER though. She endorsed a tendency to more passive SI perhaps weekly when things go wrong, even in small ways. She felt citalopram was the best med that she has taken to date and she has been on it 5 years with it being raised to 40mg a day from 20mg a day somewhere in the past year or so. She had some time of taking bupropion with citalopram but a consultation with a psychiatrist lead for her bupropion to be stopped. She did not follow up with the psychiatrist due to financial concerns per pt. She saw a therapist for a limited number of appts back about 2 years ago. She has been using cannabis daily during the pat year and she attributes her usage of it as helping her grow as a person with being more responsible, grounded, and introspective. She smokes 3/4-1ppd and has once quit smoking for about 6 months, on own without nicotine replacement or medications to assist. She has a tendency to drink alcohol heavily about once a month, with tending to have black out from her drinking ,She feels cannot stop drinking once she starts and views that as her main concern about her alcohol usage. More remotely, years ago woudl drink heavily more frequently. She denied any other usage of other substances or misuse of rx'd or OTC Meds. She has one past suicide attempt at age 17 in which she took a small overdose of pills and when she took her doctor afterwards she ended up admitted at the [facility]. She has a remote h/o SIB by superficially cutting without suicidal intent at times from age [age] , denied SIB since then. She denied h/o OCD, psychotic features, or eating disorder. She endorsed some anxiety features and can at times have a panic attack. She stated she would feel most anxious when feels trapped and would find her job as a pile driver engineer as bringing that on and that with Ativan 0.5mg bid this would not be present. She has started working at a [employer] and is expecting to start health insurance within the week. She denied episodes of hypomania but endorsed spurts of erratic behaviors that could last few hours with pt struggling to clarify if hypomanic verus just mood reactivity versus "just not being responsible" and erratic in behavior and labile in mood. Pt weary to add medication or change medication and prefers to resume citalopram at 40mg a day. She appeared not focused on Ativan. She endorsed that she sometimes views interpersonal concerns with a mild paranoid thought process, weary of people angry at her or judging her or being against her. Pt quite nauseated and severe headache during assessment left assessment to throw up and continued assessment shortly after that Physical Exam Psychiatric Orientation: alert and cooperative Apperance: appropriately dressed, appropriately groomed and appeared stated age Eye Contact: good eye contact Motor Behavior: steady gait and station and no abnormal motor movements Speech: normal rate/rhythm/volume of speech Affect: euthymic affect and mood congruent with affect "So much better." Thought Process: linear/logical thought process Thought Content: reality based without delusions Suicidal Thoughts: denies suicidal thoughts Denies SI currently, but reports intermittent, fleeting, passive suicidal thoughts which are chronic. Denies plan or intent. Homicidal Thoughts: denies homicidal thoughts Hallucinations: no auditory hallucinations Cognition: recent memory grossly intact, attention grossly intact and language grossly intact Estimated Intelligence: consistent with education level Insight: + fair insight Judgement: + fair judgement Vital Signs (Past 24 Hours) Last Vital Signs Temp 36.9 C 03/27/19 06:46 Pulse 75 03/27/19 06:46 Resp 16 03/27/19 06:46 BP 116/78 03/27/19 06:46 Pulse Ox 95 03/23/19 11:09 Principal Diagnosis Major depressive disorder, recurrent, severe without psychosis Alcohol use disorder Cannabis use disorder Psychiatric Data The patient was hospitalized on our unit for 4 days. She initially stated she wanted to resume citalopram 40 mg daily, which she had been taking intermittently prior to hospitalization. The day prior to discharge, she requested to switch to duloxetine, and tolerated 30 mg well. She was advised of the risks of ongoing alcohol and cannabis use, and was willing to try to reduce her alcohol use, but not her cannabis use. Her BAL on admission was 218, and drug screen was positive for THC. Lorazepam was discontinued due to substance abuse and risks in combination with alcohol. She also declined offers for gene socorro replacement therapy or education about smoking cessation. She attended and participated in groups, was eating and sleeping well, and performing ADLs independently. She reported improved mood, and suicidal thoughts lessened. Attempts were made to refer her for outpatient treatment, but we were unable to do so due to her lack of insurance. She was interested in following up at [facility] and was given the contact information, and agreed to schedule her intake once her insurance is activated, which will reportedly be within the next few days. Cost of medications was explored and both her medications are available for 4 or $9 at [facility]. She had a family meeting with her friend/boss, whom she has known for 10 years, on 03/26/2019, who was supportive and stated he was proud of the patient for being willing to seek treatment. He expressed concerns about her behavior just prior to admission, stating they had been out with friends, and after returning to his home, the patient was drinking and then passed out on his couch, but the next morning she was gone and left an empty wine bottle on his porch. He was worried about her, she did not tell him where she was going. She disclosed that she was having strong suicidal thoughts at the time, with urges to use this sheet in Luis Fernando's son's room to hang herself. She was able to identify contributing factors including her intoxication. He confirmed as her boss that she would be getting insurance by the end of March. They confirmed that the patient does not have access to guns, there is no alcohol in the home, no accumulation of discontinued medications, and nothing specific to use for hanging. Day of Discharge Assessment Staff report the patient has been going to groups and participating, reporting improved mood, and making plans for outpatient follow up once she gets her insurance later this month (likely within the next couple of days). On my assessment, she reports mood is "so much better," and although she still has suicidal thoughts at times, she describes them as fleeting and denies any plan or intent to harm herself. She reports she's had suicidal thoughts for many years, "it's always been in the background," and one of her goals is to work on diminishing these thoughts and therapy. She states that she "had a breakthrough" here, and thinks that her suicidal thoughts stem in part from her deeper views on existence, as they have always been present to some degree. 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 She states she is out of lorazepam at home, and is requesting a prescription for hydroxyzine 10 mg daily to use as needed for severe anxiety, and she found this helpful here. She denies any side effects to the duloxetine, and agrees to set up outpatient mental health services as soon as her insurance is activated. Transition of Care Transition Of Care Record: was reviewed with the patient Advance Directives Advance Directives Information Provided: Yes Advance Directives: No Mental Health Advance Directive: No Advance Directives on File: No Living Will: No Power of Manager Special Events: No Advance Directives Reason:: Declines as Mental Health Visit. Risk Factors Assessment Risk factors were mitigated by admission to the inpatient unit, use of medications to target mood and anxiety symptoms, providing psychoeducation about her diagnoses and the risks of ongoing substance use as well as the recommendations for abstinence, discontinuing benzodiazepines due to the risk of harm given alcohol abuse, and on healthy coping skills and a discharge safety plan, attempting to refer for outpatient treatment (unfortunately only able to refer for a PCP, as mental health treatment cannot be arranged until her insurance is active per [facility]), and a family meeting with her friend/boss. She is reporting improved mood, suicidal thoughts have lessened and she is denying plan or intent to harm herself, is eating and sleeping well and performing ADLs independently, and is requesting discharge. As she is no longer at acute risk of harm to herself, she can be managed as an outpatient at this time. Male: No : Yes Do You Have Access To A Gun?: No Health Problems: No Mental Health Diagnoses: Yes Previous Attempt: Yes Previous Attempt; Highly Lethal: No Previous Attempt; Planned: No Previous Psychiatric Hospitalization: Yes Smoker: Yes Protective Factors Assessment : No Responsible for Young Children: No Employed: Yes Stable Relationships: Yes Tobacco Cessation at Discharge Tobacco Cessation Medication Prescribed at Discharge: Offered & Pt Refused Total Time Total Time Spent: Greater Than 30 Minutes Total Time Includes: Examination of the patient, Discharge Planning and Medication Reconciliation Discharge Data Lab Results 03/23/19 03/23/19 03/23/19 05:11 05:11 05:11 WBC RBC Hgb Hct MCV MCH MCHC RDW Std Deviation RDW Coeff of Adis Plt Count MPV Immature Gran % (Auto) Neut % (Auto) Lymph % (Auto) [place] % (Auto) Eos % (Auto) Baso % (Auto) Immature Gran # (Auto) Neut # (Auto) Lymph # (Auto) [place] # (Auto) Eos # (Auto) Baso # (Auto) Sodium Potassium Chloride Carbon Dioxide Anion Gap BUN Creatinine Est Cr Clr Drug Dosing Est GFR ( Amer) Est GFR (Non-Af Amer) BUN/Creatinine Ratio Glucose Calcium Total Bilirubin AST ALT Alkaline Phosphatase Total Protein Albumin Globulin Albumin/Globulin Ratio TSH Urine Color Yellow Urine Appearance Clear Urine pH 5.0 Ur Specific [place] 1.011 Urine Protein Negative Urine Glucose (UA) Negative Urine Ketones Negative Urine Blood Negative Urine Nitrite Negative Urine Bilirubin Negative Urine Urobilinogen Negative Ur Leukocyte Esterase Negative Urine Test Negative Salicylates Urine Opiates Screen Neg Ur Methadone, Qual Neg Acetaminophen Urine Barbiturates Neg Ur Phencyclidine (PCP) Neg U Amphetamin/Meth Scrn Neg MDMA (Ecstasy) Screen Neg U Benzodiazepines Scrn Neg Ur Cocaine Metabolite Neg U Marijuana (THC) Screen Pos H U Marijuana THC Carboxy Ethyl Alcohol mg/dL 03/23/19 03/23/19 03/23/19 05:11 05:41 05:41 WBC 6.44 RBC 4.68 Hgb 14.1 Hct 41.0 MCV 87.6 MCH 30.1 MCHC 34.4 RDW Std Deviation 42.0 RDW Coeff of Adis 13.1 Plt Count 254 MPV 10.8 H Immature Gran % (Auto) 0.2 Neut % (Auto) 41.1 Lymph % (Auto) 45.5 [place] % (Auto) 6.5 Eos % (Auto) 5.3 Baso % (Auto) 1.4 Immature Gran # (Auto) 0.01 Neut # (Auto) 2.65 Lymph # (Auto) 2.93 [place] # (Auto) 0.42 Eos # (Auto) 0.34 Baso # (Auto) 0.09 Sodium 143 Potassium 3.8 Chloride 112 H Carbon Dioxide 26 Anion Gap 5.0 BUN 5 L Creatinine 0.70 Est Cr Clr Drug Dosing 113.3 Est GFR ( Amer) 132.9 Est GFR (Non-Af Amer) 114.6 BUN/Creatinine Ratio 7.5 L Glucose 96 Calcium 8.8 Total Bilirubin 0.3 AST 18 ALT 29 Alkaline Phosphatase 51 Total Protein 7.9 Albumin 4.0 Globulin 3.9 Albumin/Globulin Ratio 1.0 TSH 2.880 Urine Color Urine Appearance Urine pH Ur Specific [place] Urine Protein Urine Glucose (UA) Urine Ketones Urine Blood Urine Nitrite Urine Bilirubin Urine Urobilinogen Ur Leukocyte Esterase Urine Test Salicylates Urine Opiates Screen Ur Methadone, Qual Acetaminophen Urine Barbiturates Ur Phencyclidine (PCP) U Amphetamin/Meth Scrn MDMA (Ecstasy) Screen U Benzodiazepines Scrn Ur Cocaine Metabolite U Marijuana (THC) Screen U Marijuana THC Carboxy 50 A Ethyl Alcohol mg/dL 03/23/19 03/23/19 05:41 05:41 WBC RBC Hgb Hct MCV MCH MCHC RDW Std Deviation RDW Coeff of Adis Plt Count MPV Immature Gran % (Auto) Neut % (Auto) Lymph % (Auto) [place] % (Auto) Eos % (Auto) Baso % (Auto) Immature Gran # (Auto) Neut # (Auto) Lymph # (Auto) [place] # (Auto) Eos # (Auto) Baso # (Auto) Sodium Potassium Chloride Carbon Dioxide Anion Gap BUN Creatinine Est Cr Clr Drug Dosing Est GFR ( Amer) Est GFR (Non-Af Amer) BUN/Creatinine Ratio Glucose Calcium Total Bilirubin AST ALT Alkaline Phosphatase Total Protein Albumin Globulin Albumin/Globulin Ratio TSH Urine Color Urine Appearance Urine pH Ur Specific [place] Urine Protein Urine Glucose (UA) Urine Ketones Urine Blood Urine Nitrite Urine Bilirubin Urine Urobilinogen Ur Leukocyte Esterase Urine Test Salicylates < 1.7 L Urine Opiates Screen Ur Methadone, Qual Acetaminophen < 2 L Urine Barbiturates Ur Phencyclidine (PCP) U Amphetamin/Meth Scrn MDMA (Ecstasy) Screen U Benzodiazepines Scrn Ur Cocaine Metabolite U Marijuana (THC) Screen U Marijuana THC Carboxy Ethyl Alcohol mg/dL 218.0 H Hospital Course (1) Suicidal ideation: 03/23 admitted with SI and plan to hang herself 03/25 - Reports ongoing SI, passive on unit - Remains unable to contract for safety outside of the hospital setting 03/26 - Reporting general thoughts of "what's the point?" - Denies active SI or intent to harm self 03/27 -Patient reports suicidal thoughts have decreased in intensity and frequency, but are still present and are chronic. She denies any plan or intent to harm herself, feels safe leaving the hospital, and is able to review her safety plan. She denies access to guns and large amounts of prescription medications. (2) Major depressive disorder: 03/23 Q15 minute safety checks for SI resume citalopram 40mg a day Zofran prn for nausea/vomiting added encourage family meeting with father- pt considering encouraged referral for therapy aptps as aftercare, pt open to this encouraged psychiatrist for aftercare for psych med management, pt open to this encouraged local PCP since establishing job locally and likely to be residing locally for ablest some time, pt open to this monitor for potential h/o hypomanic episodes/symptoms reviewed with pt potential med adjustments including adjunctive Meds or alternative Meds or potential to adjust citalopram dose, however since worsening tied to very limited taking of her antidepressant agree with resuming it at prior rx dose for now 03/24 - maintained meds unchanged, pt willing to learn more about bipolar d/o and hypomanic episodes to see if might be relevant for her encouraging family meeting - pt open to one with coworker who has friendship with 03/25 - continue citalopram 40mg daily - schedule family meeting with co-worker, likely for tomorrow afternoon - Continue to observe for activation, reviewed signs and symptoms of bipolar presentation - encouraging patient to observe for mood fluctuations presenting similarly 03/26 - Reporting desire to adjust antidepressant medications - following review, reports preference for duloxetine - Will provide a 20mg dose this afternoon. Ordered 30mg of duloxetine and 20mg of citalopram for tomorrow morning - patient agreeable to more rapid cross- taper as likely nearing appropriate discharge timing - No observe activation related to consistent dosing with antidepressant medications - Family meeting with friend/coworker is scheduled for this afternoon 03/27 -Discontinue citalopram. Prescription issued for duloxetine 30 mg daily. -Patient requesting follow-up services at [facility], but they will not schedule her until she has insurance. She agrees to call them soon as her insurance is activated. She has been referred for a PCP as well, and may be able to see them in the interim if needed. (3) Anxiety: 03/23 Vistaril prn for anxiety and insomnia lorazepam aiming to stop, will allow prn dosing at 0.5mg for now 03/24 encouraged vistaril usage for anxiety/insomnia, pt wondering about ativan usage s/p discharge for prn for panic attacks, pt weary of starting buspar or other med options at this time 03/27 -Lorazepam discontinued due to substance misuse. Patient reports hydroxyzine 10 mg was helpful for severe anxiety and requested a prescription. (4) Cannabis abuse: 03/23 reviewed her cannabis usage - pt views it positively without any motivation to pull of cannabis at this time 03/24 addressed her alcohol and cannabis usage and pt in contemplative stage but seems willing to prepare to make some changes to her drinking but not yet to her cannabis usage. (5) Alcohol intoxication: 03/24 addressed her alcohol and cannabis usage and pt in contemplative stage but seems willing to prepare to make some changes to her drinking but not yet to her cannabis usage. Admitted with BAL of 218.0 (6) Nicotine addiction: 03/23 reviewed idea of nicotine replacement therapy for cravings and to als help with goal of quitting, pt declined, pt not interested in other med options for quitting smoking as well Post Discharge Appointments Primary Care Physician Name Of Family Doctor: Dr. Carson [facility] Date of Appointment with PCP: 06/04/19 Time of Appointment with PCP: 9:45 Provider Appointment Comment: [address] [facility] appt to establish PCP Primary Care Release of Information: Obtained, Reviewed and Signed Psychiatrist Name of Psychiatrist: [facility] Psychiatrist's Psychiatric Appointment Comment: call as soon as insurance becomes active, they will not schedule prior Psychiatrist Release of Information: Obtained, Reviewed and Signed Therapist Name of Therapist: [facility] Therapist's Therapy Appointment Comment: As above, call as soon as insurance becomes active Therapist Release of Information: Obtained, Reviewed and Signed Program Paraprofessional Name of Program Paraprofessional: None Smoking Cessation Counseling Tobacco Cessation Medication Prescribed at Discharge: Offered & Pt Refused Contact Information Discharge Discharge Address: [address] [place] [address] Discharge Plan Discharge Items Patient Disposition: Home - Self-Care Reason For Visit: MAJOR DEPRESSION Discharge Diagnosis: Major depressive disorder Discharge Goals: Decrease discomfort, Improve disease control, Learn about illness and Therapeutic intervention Activity: Per 'Additional Instructions' section Non-emergency contact: Primary Care Provider, Psychiatrist and Therapist Call non-emergency contact if: you have any medication questions and your symptoms worsen Follow-up/Referrals: PCP,NO [Primary Care Provider] - Diet: Regular Addtl Provider Instructions: SPECIAL CARE INSTRUCTIONS: 1. Follow through with your scheduled aftercare appointments. If unable to keep an appointment, please call to reschedule. 2. Take your medication only as prescribed. Medication should not be changed or stopped without the approval of your doctor. In the event of worsening symptoms or concerns about side effects, contact your doctor immediately. 3. Utilize new healthy coping skills, anger management skills, and stress management skills learned during your hospitalization. Journal feelings and process them with a support person. Identify stressors or situations that may result in relapse, deterioration or inappropriate behaviors and develop a plan to deal with those issues. 4. If your coping skills are ineffective and you are in crisis, contact your outpatient providers for direction. If unable to reach your providers, please call the CAN HELP LINE AT or go to the closest Emergency Room. 5. Avoid alcohol and un-prescribed drugs. 6. You have been provided with the Mental Health Advance Directives Pamphlet for your review. AFTERCARE APPOINTMENTS: * Please call your insurance company prior to your scheduled appointment to confirm your aftercare providers are covered. Take your insurance information to your appointments. WHO TO CALL AND WHEN: � Medical Emergencies:� For questions or emergencies related to your hospital stay, please contact the Inpatient Behavioral Health Unit at [phone]. � A zone maintenance technician is on-call 24/7 for the Behavioral Health Unit for emergencies � At any time you feel your situation is an emergency, you may also call 911 imme diately. Your Doctors Instructions noted above were prepared by provider Loreto Rodriguez MD. Prescriptions: New duloxetine 30 mg Capsule,Delayed Release(Dr/Ec) 30 mg PO QAM Qty: 30 RF: 0 hydroxyzine HCl 10 mg tablet 10 mg PO DAILY PRN (Reason: anxiety) Qty: 30 RF: 0 Continued isotretinoin 20 mg Capsule 20 mg PO DAILY RF: 0 Discontinued citalopram 40 mg Tablet 40 mg PO DAILY RF: 0 lorazepam 0.5 mg Tablet 0.5 mg PO Q4H PRN (Reason: Anxiety) RF: 0 Stand-Alone Forms: [facility] Discharge Orders: Discharge Order (Routine); Ordered 03/27/19 Ordered By: Loreto Rodriguez Admission Data Admit Date/Time: 03/23/19 13:19 Attending Provider: Loreto Rodriguez Admit Provider: Wang Ramos I Primary Care Provider: PCP,NO Service: Psychiatry Other Interventions: PSY Interdisciplinary Discharge Planning Last Done: 03/27/19 09:02 Pending Studies at Discharge: No
== END 2019-03-27 11:05 | disposition home or self-care (01) | DRG 885 ==
LOC: ED 05:03 → 3S 13:19